=== PATIENT | female | born 2000 ===

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

== ENCOUNTER 2019-08-30 09:55 | Inpatient (IN) | payer OTHER ==
[~2019-08-30] VITALS: Ht 162.6 cm; Wt 60.5 kg
[~2019-08-30 09:55] MED LIST changes: +Dicyclomine HCl20 MG PO; +PROM25 PO
[2019-08-30 10:31] LABS: BASOPHILS ABSOLUTE AUTO 0.06 K/mm3 (0.00-0.23); BASOPHILS PERCENT AUTO 0 % (0-2); EOSINOPHILS ABSOLUTE AUTO 0.18 K/mm3 (0.00-0.68); EOSINOPHILS PERCENT AUTO 1 % (0-6); Hematocrit 32.1 % (33.0-51.0); Hemoglobin 10.3 g/dL (11.5-16.0); IMMATURE GRAN ABSOLUTE AUTO 0.08 K/mm3 (0.00-0.10); IMMATURE GRAN PERCENT AUTO 1 % (0-1); LYMPHOCYTES ABSOLUTE AUTO 2.23 K/mm3 (0.84-5.20); LYMPHOCYTES PERCENT AUTO 14 % (21-46); MONOCYTES ABSOLUTE AUTO 1.06 K/mm3 (0.16-1.47); MONOCYTES PERCENT AUTO 7 % (4-13); Mean Corpuscular HGB 24.3 pg (26.0-34.0); Mean Corpuscular HGB Conc 32.1 g/dL (31.5-36.5); Mean Corpuscular Volume 76 fL (80-100); Mean Platelet Volume 10.4 fL (9.1-12.4); NEUTROPHILS ABSOLUTE AUTO 11.99 K/mm3 (1.96-9.15); NEUTROPHILS PERCENT AUTO 77 % (41-73); Platelet Count 278 K/mm3 (150-400); RDW Coefficient Variation 15.5 % (11.7-14.2); RDW Standard Deviation 41.8 fL (35.1-46.3); Red Blood Cell Count 4.23 M/mm3 (3.80-5.20)
--- NOTE | 2019-08-30 14:52 | NUR ---
ASSUMED CARE. PT IN BED [facility] FAMILY AT BEDSIDE. NO CONCERNS. NB AT BREAST.
--- NOTE | 2019-08-30 18:26 | NUR ---
REPORT TO ONCOMING SHIFT
[2019-08-31 05:29] LABS: BASOPHILS ABSOLUTE AUTO 0.08 K/mm3 (0.00-0.23); BASOPHILS PERCENT AUTO 1 % (0-2); EOSINOPHILS ABSOLUTE AUTO 0.23 K/mm3 (0.00-0.68); EOSINOPHILS PERCENT AUTO 2 % (0-6); IMMATURE GRAN ABSOLUTE AUTO 0.07 K/mm3 (0.00-0.10); IMMATURE GRAN PERCENT AUTO 0 % (0-1); LYMPHOCYTES ABSOLUTE AUTO 3.06 K/mm3 (0.84-5.20); LYMPHOCYTES PERCENT AUTO 19 % (21-46); MONOCYTES ABSOLUTE AUTO 0.94 K/mm3 (0.16-1.47); MONOCYTES PERCENT AUTO 6 % (4-13); Mean Corpuscular HGB 23.9 pg (26.0-34.0); Mean Corpuscular HGB Conc 31.3 g/dL (31.5-36.5); Mean Corpuscular Volume 77 fL (80-100); Mean Platelet Volume 10.2 fL (9.1-12.4); NEUTROPHILS ABSOLUTE AUTO 11.45 K/mm3 (1.96-9.15); NEUTROPHILS PERCENT AUTO 72 % (41-73); Platelet Count 252 K/mm3 (150-400); RDW Coefficient Variation 15.5 % (11.7-14.2); RDW Standard Deviation 42.2 fL (35.1-46.3); Red Blood Cell Count 4.18 M/mm3 (3.80-5.20); White Blood Cell Count 15.83 K/mm3 (4.00-11.30)
== END 2019-08-31 12:40 | disposition home or self-care (01) | DRG 807 ==
LOC: OBS 09:55 → BC 10:01
PROVIDERS: ADMIT Nurse Practitioner Obstetrics & Gynecology
PROC: 10E0XZZ Delivery of Products of Conception, External Approach (ICD-10-PCS; principal; 2019-08-30)
PROC: 10907ZC Drainage of Amniotic Fluid, Therapeutic from Products of Conception, Via Natural or Artificial Opening (ICD-10-PCS; 2019-08-30)
DX: O69.89X0 Labor and delivery complicated by other cord complications, not applicable or unspecified (principal); Z37.0 Single live birth; O76 Abnormality in fetal heart rate and rhythm complicating labor and delivery; Z3A.39 39 weeks gestation of pregnancy
CPT/HCPCS: 36415; 85025; J2001; J2210; J2590; J3010; J7120

== ENCOUNTER → 2022-09-23 | Outpatient (CLI) | payer OTHER | END | disposition home or self-care (01) | LOC: LAB SHORT 17:51 → LAB 17:51 | DX: J06.9 Acute upper respiratory infection, unspecified (principal) | CPT/HCPCS: 87807 ==

== ENCOUNTER 2023-01-26 16:36 | Emergency (ER) | payer OTHER ==
[~2023-01-26] VITALS: Ht 160 cm; Wt 46.7 kg
[2023-01-26 16:53] VITALS: BP 109/82
[2023-01-26 17:18] LABS: BASOPHILS ABSOLUTE AUTO 0.04 K/mm3 (0.00-0.23); BASOPHILS PERCENT AUTO 0 % (0-2); EOSINOPHILS ABSOLUTE AUTO 0.04 K/mm3 (0.00-0.68); EOSINOPHILS PERCENT AUTO 0 % (0-6); Hematocrit 39.7 % (33.0-51.0); Hemoglobin 13.3 g/dL (11.5-16.0); IMMATURE GRAN ABSOLUTE AUTO 0.03 K/mm3 (0.00-0.10); IMMATURE GRAN PERCENT AUTO 0 % (0-1); LYMPHOCYTES ABSOLUTE AUTO 2.34 K/mm3 (0.84-5.20); LYMPHOCYTES PERCENT AUTO 25 % (21-46); MONOCYTES ABSOLUTE AUTO 0.87 K/mm3 (0.16-1.47); MONOCYTES PERCENT AUTO 9 % (4-13); Mean Corpuscular HGB 25.5 pg (26.0-34.0); Mean Corpuscular HGB Conc 33.5 g/dL (31.5-36.5); Mean Corpuscular Volume 76 fL (80-100); Mean Platelet Volume 9.8 fL (9.1-12.4); NEUTROPHILS ABSOLUTE AUTO 6.01 K/mm3 (1.96-9.15); NEUTROPHILS PERCENT AUTO 65 % (41-73); Platelet Count 359 K/mm3 (150-400); RDW Coefficient Variation 15.2 % (11.7-14.2); RDW Standard Deviation 41.1 fL (35.1-46.3); Red Blood Cell Count 5.22 M/mm3 (3.80-5.20); White Blood Cell Count 9.33 K/mm3 (4.00-11.30)
[2023-01-26 17:41] LABS: Albumin/Globulin Ratio 0.9 (0.8-1.8); Bilirubin, Total 0.4 mg/dL (0.1-1.0); Bun/Creatinine Ratio 30.2 (12.0-20.0); Calcium, Blood 9.6 mg/dL (8.5-10.1); Creatinine, Blood 0.66 mg/dL (0.40-1.00); Globulin, Blood 4.6 g/dL (2.2-4.0); Potassium, Blood 3.5 mmol/L (3.5-5.5); Total Protein, Blood 8.6 g/dL (6.4-8.2)
[2023-01-26] MEDS ORDERED: PROM25 PO (19:34)
[2023-01-26] MEDS ORDERED: TRAZ50 PO (19:35)
== END 2023-01-26 19:52 | disposition home or self-care (01) ==
LOC: ER 16:36
PROVIDERS: Student in an Organized Health Care Education/Training Program
DX: F11.21 Opioid dependence, in remission (principal); R11.2 Nausea with vomiting, unspecified; Z87.891 Personal history of nicotine dependence
CPT/HCPCS: 36415; 80053; 85025; 96361; 96374; 99284-25; J0572; J2405; J7030

== ENCOUNTER 2024-04-13 14:13 | Emergency (ER) | payer OTHER ==
[~2024-04-13] VITALS: Ht 160 cm; Wt 49.9 kg
[~2024-04-13 14:13] MED LIST changes: +TRAZ50 PO
[2024-04-13] MEDS ORDERED: NS 1,000 ML IV SCH (14:35)
[2024-04-13] MEDS ORDERED: Ondansetron HCl 2 MG / ML 2ML Vial IV ONE (14:35)
[2024-04-13 14:51] LABS: BASOPHILS ABSOLUTE AUTO 0.03 K/mm3 (0.00-0.23); BASOPHILS PERCENT AUTO 0 % (0-2); EOSINOPHILS ABSOLUTE AUTO 0.01 K/mm3 (0.00-0.68); EOSINOPHILS PERCENT AUTO 0 % (0-6); Hematocrit 40.9 % (33.0-51.0); Hemoglobin 13.7 g/dL (11.5-16.0); IMMATURE GRAN ABSOLUTE AUTO 0.06 K/mm3 (0.00-0.10); IMMATURE GRAN PERCENT AUTO 1 % (0-1); LYMPHOCYTES ABSOLUTE AUTO 0.96 K/mm3 (0.84-5.20); LYMPHOCYTES PERCENT AUTO 7 % (21-46); MONOCYTES ABSOLUTE AUTO 0.54 K/mm3 (0.16-1.47); MONOCYTES PERCENT AUTO 4 % (4-13); Mean Corpuscular HGB Conc 33.5 g/dL (31.5-36.5); Mean Corpuscular Volume 81 fL (80-100); Mean Platelet Volume 10.5 fL (9.1-12.4); NEUTROPHILS ABSOLUTE AUTO 11.48 K/mm3 (1.96-9.15); NEUTROPHILS PERCENT AUTO 88 % (41-73); Platelet Count 262 K/mm3 (150-400); RDW Coefficient Variation 16.5 % (11.7-14.2); RDW Standard Deviation 48.4 fL (35.1-46.3); Red Blood Cell Count 5.07 M/mm3 (3.80-5.20); White Blood Cell Count 13.08 K/mm3 (4.00-11.30)
[2024-04-13 15:17] LABS: Albumin, Blood 4.8 g/dL (3.4-5.0); Albumin/Globulin Ratio 1.2 (0.8-1.8); Bilirubin, Total 0.7 mg/dL (0.1-1.0); Bun/Creatinine Ratio 26.7 (12.0-20.0); Creatinine, Blood 0.71 mg/dL (0.40-1.00); Magnesium, Blood 2.1 mg/dL (1.6-2.4); Potassium, Blood 3.9 mmol/L (3.5-5.5); Total Protein, Blood 8.8 g/dL (6.4-8.2)
[2024-04-13] MEDS ORDERED: Metoclopramide HCl 5MG / ML 2ML Vial IV ONE (15:55)
[2024-04-13 16:35] VITALS: BP 105/71
[2024-04-13] MEDS ORDERED: ONDA4ODT MM (16:37)
== END 2024-04-13 17:04 | disposition home or self-care (01) ==
LOC: ER 14:13
PROVIDERS: Physician Assistant
DX: R11.2 Nausea with vomiting, unspecified (principal); F17.200 Nicotine dependence, unspecified, uncomplicated
CPT/HCPCS: 80053; 83690; 83735; 84703; 85025; 96361; 96374; 96375; 99284-25; J2405; J2765; J7030

== ENCOUNTER 2024-08-07 01:56 | Emergency (ER) | payer OTHER ==
[~2024-08-07] VITALS: Ht 157.5 cm; Wt 46.3 kg
[2024-08-07 01:10] VITALS: BP 95/72
[~2024-08-07 01:56] MED LIST changes: +Methadone HCL 10 MG TAB PO ONE; +ONDA4ODT MM
== END 2024-08-07 04:00 | disposition home or self-care (01) ==
LOC: ER 01:56
DX: Z76.0 Encounter for issue of repeat prescription (principal); F17.200 Nicotine dependence, unspecified, uncomplicated; F11.90 Opioid use, unspecified, uncomplicated
CPT/HCPCS: 99281; A9270

== ENCOUNTER 2024-08-08 20:05 | Emergency (ER) | payer OTHER ==
[~2024-08-08] VITALS: Ht 157.5 cm; Wt 46.3 kg
[~2024-08-08 20:05] MED LIST changes: -Methadone HCL 10 MG TAB PO ONE
[2024-08-08 20:38] VITALS: BP 117/83
[2024-08-08] MEDS ORDERED: Ondansetron 4 MG SoluTab SL ONE (20:40)
[2024-08-08] MEDS ORDERED: RX Prepack 2 Tabs Ondansetron ODT 4MG UD ONE (21:55)
== END 2024-08-08 21:57 | disposition home or self-care (01) ==
LOC: ER 20:05
DX: F11.20 Opioid dependence, uncomplicated (principal); F17.200 Nicotine dependence, unspecified, uncomplicated
CPT/HCPCS: 99281; A9270

== ENCOUNTER 2024-09-29 14:45 | Emergency (ER) | payer OTHER ==
[~2024-09-29] VITALS: Ht 157.5 cm; Wt 45.4 kg
[2024-09-29 14:53] VITALS: BP 104/84
[2024-09-29] MEDS ORDERED: Methadone HCL 10 MG TAB PO ONE (14:55)
== END 2024-09-29 23:32 | disposition home or self-care (01) ==
LOC: ER 14:45
DX: F11.90 Opioid use, unspecified, uncomplicated (principal); Z76.0 Encounter for issue of repeat prescription; F17.200 Nicotine dependence, unspecified, uncomplicated
CPT/HCPCS: 99281; A9270

== ENCOUNTER 2024-09-30 15:52 | Emergency (ER) | payer OTHER ==
[~2024-09-30] VITALS: Ht 157.5 cm; Wt 45.4 kg
[2024-09-30 16:37] VITALS: BP 121/78
[2024-09-30] MEDS ORDERED: Methadone HCL 10 MG TAB PO ONE (16:40)
== END 2024-09-30 17:04 | disposition home or self-care (01) ==
LOC: ER 15:52
DX: F11.91 Opioid use, unspecified, in remission (principal); Z76.0 Encounter for issue of repeat prescription; Z87.891 Personal history of nicotine dependence
CPT/HCPCS: 99281; A9270

== ENCOUNTER 2024-11-20 17:11 | Emergency (ER) | payer OTHER ==
[~2024-11-20] VITALS: Ht 160 cm; Wt 47.6 kg
[2024-11-20] MEDS ORDERED: Methadone HCL 10 MG TAB PO ONE (17:20)
[2024-11-20 17:33] VITALS: BP 107/68
== END 2024-11-20 17:35 | disposition home or self-care (01) ==
LOC: ER 17:11
DX: F11.10 Opioid abuse, uncomplicated (principal); Z02.89 Encounter for other administrative examinations; Z87.891 Personal history of nicotine dependence
CPT/HCPCS: 99281; A9270

== ENCOUNTER 2024-12-29 20:24 | Emergency (ER) | payer OTHER ==
[~2024-12-29] VITALS: Ht 157.5 cm; Wt 45.4 kg
[2024-12-29 20:56] VITALS: BP 129/98
[2024-12-29] MEDS ORDERED: HyDROXyzine HCl 25 MG Tab PO ONE (22:50)
[2024-12-29] MEDS ORDERED: Acetaminophen 500 MG Tab PO ONE (22:55)
[2024-12-31] MEDS ORDERED: CATAPRES0.1 MG PO (17:19)
[2024-12-31] MEDS ORDERED: ONDA4ODT MM (17:19)
[2024-12-31] MEDS ORDERED: Ativan1 MG PO (17:19)
== END 2024-12-30 00:03 | disposition home or self-care (01) ==
LOC: ER 20:24
DX: F11.23 Opioid dependence with withdrawal (principal); F41.9 Anxiety disorder, unspecified; F17.200 Nicotine dependence, unspecified, uncomplicated
CPT/HCPCS: 99283; A9270

== ENCOUNTER 2024-12-31 17:08 | Emergency (ER) | payer OTHER ==
[~2024-12-31] VITALS: Ht 157.5 cm; Wt 45.4 kg
[2024-12-31 17:12] VITALS: BP 123/92
[2024-12-31] MEDS ORDERED: CATAPRES0.1 MG PO (17:19)
[2024-12-31] MEDS ORDERED: ONDA4ODT MM (17:19)
[2024-12-31] MEDS ORDERED: Ativan1 MG PO (17:19)
== END 2024-12-31 17:22 | disposition home or self-care (01) ==
LOC: ER 17:08
DX: F11.23 Opioid dependence with withdrawal (principal); Z79.899 Other long term (current) drug therapy; F17.200 Nicotine dependence, unspecified, uncomplicated
CPT/HCPCS: 99283